=== PATIENT | male | born 1980 | race Caucasian/White ===

== ENCOUNTER 2020-10-31 16:54 | Emergency (ER) | payer OTHER ==
[~2020-10-31] VITALS: Ht 172.7 cm; Wt 77.1 kg
--- NOTE | 2020-10-31 17:53 | NUR ---
Patient discharged to home in stable condition. Written and verbal after care instructions given. Patient verbalizes understanding of instructions. Stressed follow up or return to ER for worsening s/s.
== END 2020-10-31 17:54 | disposition home or self-care (01) ==
LOC: ER 16:54
DX: S93.402A Sprain of unspecified ligament of left ankle, initial encounter (principal); W18.40XA Slipping, tripping and stumbling without falling, unspecified, initial encounter; Y92.89 Other specified places as the place of occurrence of the external cause
CPT/HCPCS: 73610; A4663